=== PATIENT | male | born 1950 | race Native Hawaiian/Other Pacific Islander ===

== ENCOUNTER 2017-12-15 19:14 | Emergency (ER) | payer OTHER ==
[~2017-12-15] VITALS: Ht 177.8 cm; Wt 117.9 kg
[~2017-12-15 19:14] MED LIST: ABILIFY5 MG PO; ATENOLOL100 M1 PO; BAYER CHEWABLE81 MG PO; BENICAR40 MG PO; BRIMONIDINE0.15 % OPTH; BUPR150T PO; CALCIUM 600+D1 T10 PO; CIPRO500 MG PO; DIPH50CA30 PO; DIVA125C PO; DIVALPROEX500 M1 PO; FURO20TA67 PO; FURO40TA93 PO; HALO5TAB10 PO; LEVAQUIN250 MG PO; LEVO0.0723 PO; LEXAPRO10 MG PO; LEXAPRO20 MG PO; MULT1 PO; NEXIUM40 M1 PO; PERPHENAZINE4 MG PO; PROTEINE1 PO; REMERON SOLTAB15 MG PO; SEROQUEL200 MG PO; SEROQUEL400 MG PO; SPIR50TA8 PO; SPIRONOLACT25 MG PO; TED HOSE; TEMA30CA18 PO; TIROSINT88 MCG PO; TYLENOL325 MG PO; VITAMIN B-12500 MCG PO; WATEINJ6 INJ; ZIPR20IN IM
[2017-12-15 19:20] VITALS: TEMP 98.3
[2017-12-15] MEDS ORDERED: PERPHENAZINE4 MG PO (19:30)
[2017-12-15] MEDS ORDERED: POTASSIUM CHLO10 MEQ PO (19:31)
[2017-12-15] MEDS ORDERED: TEMA15CA19 PO (19:32)
[2017-12-15 19:53] LABS: PLATELET COUNT 365 K/uL (142-355)
[2017-12-15 20:01] LABS: POTASSIUM 3.9 mmol/L (3.6-5.2); SODIUM 129 mmol/L (136-145)
[2017-12-15 20:47] VITALS: BP 152/63
[2017-12-15] MEDS ORDERED: PANTOPRAZOLE 40MG TA PO (23:20)
[2017-12-15] MEDS ORDERED: SEROQUEL200 MG OR (23:21)
== END 2017-12-15 20:50 | disposition other institution (70) ==
LOC: ED 19:14
PROVIDERS: Internal Medicine
DX: N39.0 Urinary tract infection, site not specified (principal); F20.9 Schizophrenia, unspecified; R44.0 Auditory hallucinations; Z04.6 Encounter for general psychiatric examination, requested by authority
CPT/HCPCS: 36415; 80053; 80307; 80320; 80329; 81000; 85027; 87077; 87086; 87088; 87186; 93005; 99285

== ENCOUNTER 2023-02-25 22:49 | Emergency (ER) | payer OTHER ==
[~2023-02-25] VITALS: Ht 162.6 cm; Wt 113.4 kg
[~2023-02-25 22:49] MED LIST changes: +PANTOPRAZOLE 40MG TA PO; +POTASSIUM CHLO10 MEQ PO; +SEROQUEL200 MG OR; +TEMA15CA19 PO
[2023-02-25 22:50] VITALS: TEMP 98.6
[2023-02-26 00:02] LABS: PLATELET COUNT 186 K/uL (142-355)
[2023-02-26 00:10] LABS: POTASSIUM 3.9 mmol/L (3.6-5.2)
[2023-02-26 01:35] VITALS: BP 122/68
[2023-02-26] MEDS ORDERED: CARV12.5 PO (07:31)
[2023-02-26] MEDS ORDERED: DIVA125C PO ×2 (07:32→07:33)
[2023-02-26] MEDS ORDERED: APIX1TAB PO (07:33)
[2023-02-26] MEDS ORDERED: FURO40TA93 PO (07:34)
[2023-02-26] MEDS ORDERED: FERROUS SULF325 MG PO (07:34)
[2023-02-26] MEDS ORDERED: HYDRALAZINE50 MG PO (07:35)
[2023-02-26] MEDS ORDERED: IPRATROPIUM/ INH (07:37)
[2023-02-26] MEDS ORDERED: CLON1TAB18 PO (07:37)
[2023-02-26] MEDS ORDERED: MELATONIN10 M1 PO (07:38)
[2023-02-26] MEDS ORDERED: LEVO0.08 PO (07:38)
[2023-02-26] MEDS ORDERED: PERPHENAZINE4 MG PO (07:39)
[2023-02-26] MEDS ORDERED: KLOR-CON M2020 MEQ PO (07:40)
[2023-02-26] MEDS ORDERED: QUETIAPINE400 MG PO (07:41)
[2023-02-26] MEDS ORDERED: OMEP20CA PO (07:41)
[2023-02-26] MEDS ORDERED: RESTORIL7.5 MG PO (07:42)
[2023-02-26] MEDS ORDERED: ACET-689 PO (07:43)
[2023-02-26] MEDS ORDERED: VITAMIN D5000 UNI1 PO (07:44)
== END 2023-02-26 01:35 ==
LOC: ED 22:49
PROVIDERS: Family Medicine
DX: R45.1 Restlessness and agitation (principal); F03.90 Unspecified dementia, unspecified severity, without behavioral disturbance, psychotic disturbance, mood disturbance, and anxiety; E11.9 Type 2 diabetes mellitus without complications; F41.9 Anxiety disorder, unspecified; Z02.79 Encounter for issue of other medical certificate
CPT/HCPCS: 36415; 80053; 85027; 87635; 93005; 99283; U0003